=== PATIENT | female | born 1970 | race Caucasian/White ===

== ENCOUNTER 2021-02-21 10:44 | Emergency (ER) | payer OTHER ==
[~2021-02-21] VITALS: Ht 152.4 cm; Wt 54.8 kg
[2021-02-21] MEDS ORDERED: EPINEPHRINE 1 MG/ML, 1ML ONE (11:29)
[2021-02-21] MEDS ORDERED: EPINEPHRINE 1 MG/ML, 1ML SQ ONE (11:30)
--- NOTE | 2021-02-21 11:35 | NUR ---
LATE ENTRYK FOR 1135: PT PRESENTS TO ED WITH C/O DIFFICULTY BREATHING AFTER INGESTING A VITAMIN DRINK, STATING SHE BELIEVES SHE IS ALLERGIC TO A COMPONENT IN THE DRINK BUT UNSURE OF WHAT. PT STATES SHE HAS HAD ALLERGIC REACTIONS IN THE PAST BUT HAS NEVER BEEN ABLE TO LOCALIZE ALLERGEN. PT IS A&O, RESPS EVEN AND UNLABORED. 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 PT SPEAKING CLEARLY IN FULL SENTENCES WITHOUT DIFFICULTY. PT HAS NO DIFFIUCULTY MANAGING OWN SECRETIONS. CALL LIGHT IN REACH, BLANKET PROVIDED.
--- NOTE | 2021-02-21 11:54 | NUR ---
pt medicated per emar, tolerated well. all monitors in place, pt remains in nrs rate 60s with no ectopy. pt reports sob has not improved, edpa rhona aware and at bedside. resps even and unlabored, no angioedema, pt able to speak clearly in full sentences without difficulty. awaiting further orders.
[2021-02-21 12:00] VITALS: BP 118/66
--- NOTE | 2021-02-21 12:26 | NUR ---
PT MAINTAINED NSR ON PERIOPERATIVE EDUCATOR WITH NO ECTOPY THROUGHOUT ED STAY, RATE 60'S. PT A&O, RESPS EVEN AND UNLABORED. NO N/V. PT ABLE TO SPEAK CLEARLY IN FULL SENTENCES WITHOUT DIFFICULTY, PT HAS NO ANGIOEDEMA OR DIFFICULTY MANAGING SECRETIONS. DC ORDERS RECEIVED. 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 PT VERBALIZES UNDERSTANDING. PT GIVEN DC INSTRUCTIONS AND SCRIPT FOR EPI PEN AND PEPCID/BENADRYL PRN FOR FUTURE ALLERGIC REACTIONS. PT AMBULATORY TO DC DESK WITH STEADY GAIT.
== END 2021-02-21 12:27 | disposition home or self-care (01) ==
LOC: ED 12:20
DX: R06.02 Shortness of breath (principal); T78.1XXA Other adverse food reactions, not elsewhere classified, initial encounter; R21 Rash and other nonspecific skin eruption; X58.XXXA Exposure to other specified factors, initial encounter
CPT/HCPCS: 93005; 96372; 99283; J0171